=== PATIENT | male | born 1960 | race Caucasian/White ===

== ENCOUNTER 2021-05-11 03:07 | Inpatient (IN) ==
[2021-05-11] MEDS ORDERED: Aspirin 81 MG TAB.CHEW PO ONE (03:36)
[2021-05-11] MEDS ORDERED: Nitroglycerin 0.4 MG TAB.SUBL SL PRN ×2 (03:45→08:58)
[2021-05-11 03:54] LABS: Basophils # 0.1 K/mcL (0.0-0.2); Basophils % 0.9 %; Eosinophils # 0.4 K/mcL (0.0-0.6); Eosinophils % 6.9 %; Hematocrit 41.7 % (37.5-50.1); Hemoglobin 13.6 g/dL (12.9-16.9); Immature Granulocytes % 2.1 % (0-4); Lymphocytes # 1.7 K/mcL (0.6-4.6); Lymphocytes % 32.3 %; Mean Corpuscular HGB Conc 32.6 g/dL (31.6-35.5); Mean Corpuscular Hemoglobin 27.5 pg (28.0-33.3); Mean Corpuscular Volume 84.2 fL (83.0-100.0); Monocytes # 0.5 K/mcL (0.0-1.3); Monocytes % 9.9 %; Neutrophils # 2.6 K/mcL (1.6-8.9); Platelet Count 132 K/mcL (140-400); Red Blood Count 4.95 M/mcL (4.19-5.50); Red Cell Distribution Width 14.9 % (11.5-14.5); Segmented Neutrophils % 47.9 %; White Blood Count 5.4 K/mcL (4.3-11.1)
[2021-05-11 04:09] LABS: BUN/Creatinine Ratio 25 (6-26); Blood Urea Nitrogen 35 mg/dL (8-23); Calcium 8.8 mg/dL (8.6-10.3); Carbon Dioxide 27 mEq/L (23-29); Chloride 99 mEq/L (98-107); Glucose 321 mg/dL (70-105); Osmolality,Calculated 300 (280-300); Potassium 4.3 mEq/L (3.5-5.1); Sodium 135 mEq/L (136-145); eGFR For African Americans > 60 (> 60); eGFR For Non-African Americans 51 (> 60)
[2021-05-11 04:16] LABS: Troponin I < 0.03 ng/mL (< 0.04)
[2021-05-11 04:45] LABS: INR 0.9; Prothrombin Time 10.4 Seconds (9.4-12.1)
[2021-05-11 07:43] LABS: Adenovirus Not Detected (Not Detect); Coronavirus 229E Not Detected (Not Detect); Coronavirus HKU1 Not Detected (Not Detect); Coronavirus NL63 Not Detected (Not Detect); Coronavirus OC43 Not Detected (Not Detect)
[2021-05-11 07:44] LABS: Bordetella Pertussis Not Detected (Not Detect); Chlamydophila pneumoniae Not Detected (Not Detect); Human Metapneumovirus Not Detected (Not Detect); Human Rhinovirus/Enterovirus Not Detected (Not Detect); Influenza A Subtype 2009 H1 Not Detected (Not Detect); Influenza B Not Detected (Not Detect); Mycoplasma pneumoniae Not Detected (Not Detect); Parainfluenza Virus 1 Not Detected (Not Detect); Parainfluenza Virus 2 Not Detected (Not Detect); Parainfluenza Virus 3 Not Detected (Not Detect); Parainfluenza Virus 4 Not Detected (Not Detect); Respiratory Syncytial Virus Not Detected (Not Detect); SARS-CoV-2 Not Detected (Not Detect)
[2021-05-11] MEDS ORDERED: Naloxone 0.4 MG/ML INJ IVP PRN (08:09)
[2021-05-11] MEDS ORDERED: Perflutren Lipid Microsphere 1.3 ML in 0.9 % Sodium Chloride 8.7 ML IVP PRN (08:58)
[2021-05-11] MEDS ORDERED: D5% in Water 1,000 ML IVC PRN (09:02)
[2021-05-11] MEDS ORDERED: *HR* Dextrose 50 % in Water (Vial) 50 ML VIAL IVP PRN (09:02)
[2021-05-11] MEDS ORDERED: Dextrose Gel 15 GM/37.5 ML TUBE PO PRN ×2 (09:02)
[2021-05-11 11:36] LABS: Chol/HDL Ratio 6.6 (0-4.9); Cholesterol 178 mg/dL (< 200); HDL Cholesterol 27 mg/dL (40-59); Magnesium 1.8 mg/dL (1.6-2.6); Triglycerides 618 mg/dL (< 150); Troponin I 0.07 ng/mL (< 0.04)
[2021-05-11 11:52] LABS: Estimated Average Glucose 206 mg/dl; Hemoglobin A1C 8.8 %
[2021-05-11] MEDS ORDERED: *HR* Heparin 5,000 UNIT/ML VIAL IVP ONE (12:16)
[2021-05-11] MEDS ORDERED: *HR* Heparin 5,000 UNIT/ML VIAL IVP PRN (12:16)
[2021-05-11] MEDS: Insulin LISPRO 300 UNITS/3 ML VIAL SUBQ SCH ×3 (13:24→23:23)
[2021-05-11] MEDS: Heparin 25,000UNIT/250ML 1/2NS 25,000 UNIT/250 ML IV.SOLN IVC SCH (14:22)
[2021-05-11 14:30] LABS: Bilirubin,Urine Negative (Negative); Blood,Urine Negative (Negative); Clarity,Urine Clear (Clear); Color,Urine Light-Yellow (Yellow); Glucose,Urine (UA) >=1000 mg/dL (Normal); Ketones,Urine Negative (Negative); Leukocyte Esterase,Urine Negative (Negative); Nitrite,Urine Negative (Negative); Protein,Urine Negative (Neg-Trace); RBC,Urine 0-3 per hpf (0-3); Specific Gravity,Urine 1.024 (1.010-1.025); Urobilinogen,Urine Normal (Normal); WBC,Urine 0-3 per hpf (0-3)
[2021-05-11 14:49] LABS: Sodium, Urine 76.4 mEq/L
[2021-05-11 14:57] LABS: Hematocrit 44.2 % (37.5-50.1); Hemoglobin 14.3 g/dL (12.9-16.9); Mean Corpuscular HGB Conc 32.4 g/dL (31.6-35.5); Mean Corpuscular Hemoglobin 27.6 pg (28.0-33.3); Mean Corpuscular Volume 85.2 fL (83.0-100.0); Mean Platelet Volume 11.1 fL (9.4-12.4); Platelet Count 129 K/mcL (140-400); Red Blood Count 5.19 M/mcL (4.19-5.50); White Blood Count 4.4 K/mcL (4.3-11.1)
[2021-05-11 15:06] LABS: INR 0.9; Prothrombin Time 10.2 Seconds (9.4-12.1)
[2021-05-11] MEDS ORDERED: *HR* Heparin 5,000 UNIT/ML VIAL SQ SCH (18:00)
[2021-05-11] MEDS ORDERED: Morphine Sulfate ER (12 HR) 15 MG TABLET.ER PO SCH (18:00)
[2021-05-11] MEDS: traZODone 50 MG TABLET PO SCH (19:57)
[2021-05-11] MEDS: Gabapentin 300 MG CAPSULE PO SCH (19:58)
[2021-05-11] MEDS: Isosorbide MONOnitrate (24 HR) 30 MG TAB.ER.24H PO SCH (19:58)
[2021-05-11] MEDS: Divalproex (24 HR) 500 MG TABLET PO SCH (19:58)
[2021-05-11] MEDS: Venlafaxine XR (24 HR) 75 MG CAP.ER.24H PO SCH (19:58)
[2021-05-11] MEDS: Insulin NPH/REG 70/30 100 UNIT/ML (x5UNIT) SUBQ SCH (20:20)
[2021-05-11] MEDS: Baclofen 10 MG TABLET PO SCH (22:26)
[2021-05-12 00:46] LABS: Basophils # 0.1 K/mcL (0.0-0.2); Basophils % 0.9 %; Eosinophils # 0.4 K/mcL (0.0-0.6); Eosinophils % 6.5 %; Hematocrit 44.7 % (37.5-50.1); Hemoglobin 14.7 g/dL (12.9-16.9); Immature Granulocytes % 1.8 % (0-4); Immature Platelets 5.1 % (1.1-6.1); Lymphocytes # 1.8 K/mcL (0.6-4.6); Mean Corpuscular HGB Conc 32.9 g/dL (31.6-35.5); Mean Corpuscular Hemoglobin 27.7 pg (28.0-33.3); Mean Corpuscular Volume 84.3 fL (83.0-100.0); Mean Platelet Volume 11.1 fL (9.4-12.4); Monocytes # 0.4 K/mcL (0.0-1.3); Monocytes % 7.3 %; Neutrophils # 2.8 K/mcL (1.6-8.9); Platelet Count 138 K/mcL (140-400); Segmented Neutrophils % 51.5 %; White Blood Count 5.5 K/mcL (4.3-11.1)
[2021-05-12 01:00] LABS: BUN/Creatinine Ratio 23 (6-26); Blood Urea Nitrogen 24 mg/dL (8-23); Calcium 8.8 mg/dL (8.6-10.3); Carbon Dioxide 24 mEq/L (23-29); Chloride 104 mEq/L (98-107); Glucose 121 mg/dL (70-105); Magnesium 1.6 mg/dL (1.6-2.6); Osmolality,Calculated 287 (280-300); Potassium 3.8 mEq/L (3.5-5.1); Sodium 136 mEq/L (136-145); eGFR For African Americans > 60 (> 60); eGFR For Non-African Americans > 60 (> 60)
[2021-05-12] MEDS: *HR* Heparin 5,000 UNIT/ML VIAL IVP PRN ×2 (01:51→21:23)
[2021-05-12] MEDS: Ondansetron 4 MG/2 ML VIAL IVP PRN ×2 (01:51→18:01)
[2021-05-12] MEDS: Insulin LISPRO 300 UNITS/3 ML VIAL SUBQ SCH ×3 (06:23→17:27)
[2021-05-12] MEDS ORDERED: hydroCHLOROthiazide 25 MG TABLET PO SCH (09:00)
[2021-05-12] MEDS ORDERED: Loratadine 10 MG TABLET PO SCH (09:00)
[2021-05-12] MEDS ORDERED: Aspirin Enteric Coated 81 MG Tablet PO SCH ×2 (09:00)
[2021-05-12] MEDS ORDERED: ROSUVASTATIN CALCIUM 5 MG PO SCH (09:00)
[2021-05-12] MEDS ORDERED: lisinopriL 20 MG TABLET PO SCH (09:00)
[2021-05-12] MEDS ORDERED: Nitroglycerin 1,000 MCG/5 ML VIAL IV ONE (09:14)
[2021-05-12] MEDS ORDERED: ISOVUE-370 200 ML INFUS..BTL ONE (09:14)
[2021-05-12] MEDS ORDERED: 0.9 % Sodium Chloride 2,000 ML ONE (09:14)
[2021-05-12] MEDS ORDERED: Heparin 1,000 UNITS/500 mL 500 ML ONE (09:14)
[2021-05-12] MEDS ORDERED: *HR* Heparin 10,000 UNIT/10 ML VIAL ONE ×2 (09:14→10:27)
[2021-05-12] MEDS ORDERED: *HR* FentaNYL (PF) 100 MCG/2 ML VIAL ONE (09:39)
[2021-05-12] MEDS ORDERED: *HR* Midazolam HCl 2 MG/2 ML VIAL ONE (09:39)
[2021-05-12] MEDS: Insulin NPH/REG 70/30 100 UNIT/ML (x5UNIT) SUBQ SCH ×2 (13:35→20:33)
[2021-05-12] MEDS: Baclofen 10 MG TABLET PO SCH ×3 (13:55→19:55)
[2021-05-12] MEDS: Venlafaxine XR (24 HR) 75 MG CAP.ER.24H PO SCH (14:21)
[2021-05-12] MEDS: Gabapentin 300 MG CAPSULE PO SCH ×3 (14:22→19:55)
[2021-05-12] MEDS: Isosorbide MONOnitrate (24 HR) 30 MG TAB.ER.24H PO SCH (14:22)
[2021-05-12 15:01] LABS: Chol/HDL Ratio 5.6 (0-4.9)
[2021-05-12] MEDS: Heparin 25,000UNIT/250ML 1/2NS 25,000 UNIT/250 ML IV.SOLN IVC SCH (18:45)
[2021-05-12] MEDS: Divalproex (24 HR) 500 MG TABLET PO SCH (19:54)
[2021-05-12] MEDS ORDERED: Chlorhexidine Rinse 15 ML MOUTHWASH MM SCH (21:00)
[2021-05-12] MEDS ORDERED: Adenosine 90 MG/30 ML MLS IV ONE (21:29)
[2021-05-13] MEDS: traZODone 50 MG TABLET PO SCH ×2 (00:48→19:38)
[2021-05-13] MEDS: Insulin LISPRO 300 UNITS/3 ML VIAL SUBQ SCH ×4 (02:16→18:18)
[2021-05-13 04:05] LABS: Basophils % 0.6 %; Eosinophils # 0.1 K/mcL (0.0-0.6); Eosinophils % 2.2 %; Hematocrit 48.2 % (37.5-50.1); Hemoglobin 16.1 g/dL (12.9-16.9); Immature Granulocytes % 0.9 % (0-4); Lymphocytes # 1.2 K/mcL (0.6-4.6); Lymphocytes % 18.9 %; Mean Corpuscular HGB Conc 33.4 g/dL (31.6-35.5); Mean Corpuscular Volume 83.8 fL (83.0-100.0); Mean Platelet Volume 10.6 fL (9.4-12.4); Monocytes # 0.4 K/mcL (0.0-1.3); Monocytes % 6.4 %; Neutrophils # 4.5 K/mcL (1.6-8.9); Platelet Count 144 K/mcL (140-400); Red Blood Count 5.75 M/mcL (4.19-5.50); White Blood Count 6.4 K/mcL (4.3-11.1)
[2021-05-13 04:19] LABS: BUN/Creatinine Ratio 18 (6-26); Blood Urea Nitrogen 19 mg/dL (8-23); Calcium 9.1 mg/dL (8.6-10.3); Carbon Dioxide 24 mEq/L (23-29); Chloride 102 mEq/L (98-107); Glucose 97 mg/dL (70-105); Osmolality,Calculated 284 (280-300); Potassium 3.7 mEq/L (3.5-5.1); Sodium 136 mEq/L (136-145); eGFR For African Americans > 60 (> 60); eGFR For Non-African Americans > 60 (> 60)
[2021-05-13] MEDS ORDERED: Aspirin 81 MG TAB.CHEW PO ONE (06:00)
[2021-05-13] MEDS ORDERED: CeFAZolin Syr 2,000MG/20 ML 2,000 MG/20 ML SYRINGE IVPB ONE (07:00)
[2021-05-13] MEDS ORDERED: Dextrose 50 % in Water (Vial) 30 ML, Sodium Bicarbonate 20 MEQ, Potassium Chloride 15 M... TH ONE (07:45)
[2021-05-13] MEDS ORDERED: Heparin 15,000 UNIT in 0.9 % Sodium Chloride 500 ML IV ONE (07:45)
[2021-05-13] MEDS ORDERED: Norepinephrine 4 MG in 0.9 % Sodium Chloride 250 ML IVC PRN (07:45)
[2021-05-13] MEDS ORDERED: Dextrose 50 % in Water (Vial) 30 ML, Sodium Bicarbonate 20 MEQ, Lidocaine 1% 5 ML, Insu... TH ONE ×3 (07:45)
[2021-05-13] MEDS ORDERED: Perflutren Lipid Microsphere 1.3 ML in 0.9 % Sodium Chloride 8.7 ML IVP PRN (08:31)
[2021-05-13] MEDS ORDERED: Nitroglycerin 0.4 MG TAB.SUBL SL PRN (08:31)
[2021-05-13] MEDS ORDERED: Naloxone 0.4 MG/ML INJ IVP PRN (08:31)
[2021-05-13] MEDS ORDERED: *HR* Dextrose 50 % in Water (Vial) 50 ML VIAL IVP PRN (08:31)
[2021-05-13] MEDS ORDERED: *HR* Heparin 5,000 UNIT/ML VIAL IVP PRN ×2 (08:31)
[2021-05-13] MEDS ORDERED: D5% in Water 1,000 ML IVC PRN (08:31)
[2021-05-13] MEDS ORDERED: Dextrose Gel 15 GM/37.5 ML TUBE PO PRN ×2 (08:31)
[2021-05-13] MEDS ORDERED: lisinopriL 20 MG TABLET PO SCH (09:00)
[2021-05-13] MEDS: Aspirin Enteric Coated 81 MG Tablet PO SCH (09:44)
[2021-05-13] MEDS: Loratadine 10 MG TABLET PO SCH (09:45)
[2021-05-13] MEDS: hydroCHLOROthiazide 25 MG TABLET PO SCH (09:45)
[2021-05-13] MEDS: Isosorbide MONOnitrate (24 HR) 30 MG TAB.ER.24H PO SCH (09:45)
[2021-05-13] MEDS: Gabapentin 300 MG CAPSULE PO SCH ×3 (09:45→19:37)
[2021-05-13] MEDS: Chlorhexidine Rinse 15 ML MOUTHWASH MM SCH ×2 (09:46→19:20)
[2021-05-13] MEDS: Venlafaxine XR (24 HR) 75 MG CAP.ER.24H PO SCH (09:58)
[2021-05-13] MEDS: Baclofen 10 MG TABLET PO SCH ×3 (09:58→19:38)
[2021-05-13] MEDS: Insulin NPH/REG 70/30 100 UNIT/ML (x5UNIT) SUBQ SCH ×2 (09:59→19:36)
[2021-05-13] MEDS ORDERED: *HR* LORazepam 0.5 MG TABLET PO ONE (12:25)
[2021-05-13] MEDS: Heparin 25,000UNIT/250ML 1/2NS 25,000 UNIT/250 ML IV.SOLN IVC SCH (12:27)
[2021-05-13] MEDS: Divalproex (24 HR) 500 MG TABLET PO SCH (19:37)
[2021-05-13] MEDS: Ondansetron 4 MG/2 ML VIAL IVP PRN (22:02)
[2021-05-14] MEDS: Insulin LISPRO 300 UNITS/3 ML VIAL SUBQ SCH ×4 (00:08→18:14)
[2021-05-14] MEDS: Ondansetron 4 MG/2 ML VIAL IVP PRN ×2 (05:57→16:56)
[2021-05-14 06:44] LABS: BUN/Creatinine Ratio 17 (6-26); Blood Urea Nitrogen 18 mg/dL (8-23); Calcium 9.1 mg/dL (8.6-10.3); Carbon Dioxide 25 mEq/L (23-29); Chloride 102 mEq/L (98-107); Glucose 108 mg/dL (70-105); Osmolality,Calculated 284 (280-300); Potassium 3.9 mEq/L (3.5-5.1); Sodium 136 mEq/L (136-145); eGFR For African Americans > 60 (> 60); eGFR For Non-African Americans > 60 (> 60)
[2021-05-14] MEDS: Heparin 25,000UNIT/250ML 1/2NS 25,000 UNIT/250 ML IV.SOLN IVC SCH (06:51)
[2021-05-14 06:52] LABS: Hematocrit 47.7 % (37.5-50.1); Hemoglobin 15.8 g/dL (12.9-16.9); Mean Corpuscular HGB Conc 33.1 g/dL (31.6-35.5); Mean Corpuscular Hemoglobin 27.7 pg (28.0-33.3); Mean Corpuscular Volume 83.7 fL (83.0-100.0); Platelet Count 138 K/mcL (140-400); Red Cell Distribution Width 15.1 % (11.5-14.5); White Blood Count 6.7 K/mcL (4.3-11.1)
[2021-05-14 07:27] VITALS: TEMP 98.6
[2021-05-14 08:24] LABS: Magnesium 1.7 mg/dL (1.6-2.6); Phosphorous 2.1 mg/dL (2.7-4.5)
[2021-05-14] MEDS: Gabapentin 300 MG CAPSULE PO SCH ×3 (08:37→19:25)
[2021-05-14] MEDS: Venlafaxine XR (24 HR) 75 MG CAP.ER.24H PO SCH (08:38)
[2021-05-14] MEDS: hydroCHLOROthiazide 25 MG TABLET PO SCH (08:38)
[2021-05-14] MEDS: Aspirin Enteric Coated 81 MG Tablet PO SCH (08:38)
[2021-05-14] MEDS: Isosorbide MONOnitrate (24 HR) 30 MG TAB.ER.24H PO SCH (08:39)
[2021-05-14] MEDS: Loratadine 10 MG TABLET PO SCH (08:39)
[2021-05-14] MEDS: Baclofen 10 MG TABLET PO SCH ×3 (08:40→19:26)
[2021-05-14] MEDS: Insulin NPH/REG 70/30 100 UNIT/ML (x5UNIT) SUBQ SCH ×2 (08:58→19:29)
[2021-05-14] MEDS ORDERED: *HR* LORazepam 0.5 MG TABLET PO PRN (11:23)
[2021-05-14] MEDS ORDERED: *HR* LORazepam 0.5 MG TABLET PO ONE (12:55)
[2021-05-14 18:13] VITALS: BP 155/84; PULSE 85; O2SAT 95
[2021-05-14] MEDS: Divalproex (24 HR) 500 MG TABLET PO SCH (19:24)
[2021-05-14] MEDS: traZODone 50 MG TABLET PO SCH (19:25)
== END 2021-05-14 21:30 | disposition short-term general hospital (02) | DRG 287 ==
LOC: EMEROOARM 03:07 → CDU 03:07 → SUATTDRO 06:55 → CDU 08:13 → ICNU 05-12 19:13
PROVIDERS: ADMIT Student in an Organized Health Care Education/Training Program; ATTEND Internal Medicine